=== PATIENT | female | born 2000 | race Caucasian/White ===

== ENCOUNTER 2019-11-01 09:29 | Emergency (ER) | payer BC ==
[2019-11-01 10:11] LABS: Urine Blood 2+ (NEG); Urine Glucose TRACE (NEG); Urine Protein 1+ (NEG); Urine Specific Gravity 1.025 (1.005-1.030)
[2019-11-01 10:28] LABS: Urine Bacteria 20-50 /HPF (<20); Urine Culture Reflex Order REFLEXED; Urine Mucus MOD /HPF (NONE SEEN); Urine RBC 20-50 /HPF (NONE SEEN)
[2019-11-01 10:28] LABS: Absolute Lymphocytes (CBC) 1.5 K/uL (0.7-4.9); Basophils % 0.2 % (0-1.3); Hematocrit 34.1 % (36.0-45.0); MPV 8.6 fL (7.6-11.3); RBC Red Blood Cell Count 4.08 M/uL (3.86-4.86)
[2019-11-01] MEDS ORDERED: KETOROLAC 30 MG/ML INJ ONE (10:58)
--- NOTE | 2019-11-01 11:14 | RAD REPORT ---
EXAM DESCRIPTION: CTAbdomen Pelvis W Contrast - 11/01/2019 11:07 am CLINICAL HISTORY: Abdominal pain. ABD PAIN COMPARISON: No comparisons TECHNIQUE: Biphasic CT imaging of the abdomen and pelvis was performed with 100 ml non-ionic IV cont rast. All CT scans are performed using dose optimization technique as appropriate and may include automated exposure control or mA/KV adjustment according to patient size. FINDINGS: The lung bases are clear. The liver, spleen, pancreas, adrenal glands and right kidney are within normal limits. 3 mm stone (71 5 HU) is present in the proximal left ureter resulting in moderate left hydronephrosis. No bowel obstruction, free air, free fluid or abscess. The appendix is normal. No evidence of signi ficant lymphadenopathy. No suspicious bony findings. 4 cm right ovarian cyst with trace pelvic free. IMPRESSION: 3 mm calculus is present proximal left ureter resulting in moderate left hydronephrosis
[2019-11-01 11:20] LABS: Albumin 3.3 g/dL (3.4-5.0); Bilirubin Direct 0.1 mg/dL (0-0.2); Bilirubin Total 0.5 mg/dL (0.2-1.0); Potassium 3.6 mmol/L (3.5-5.1); Protein, Total 6.4 g/dL (6.4-8.2)
[2019-11-01] MEDS ORDERED: TAMSULOSIN 0.4 MG SR CAP ONE (11:54)
[2019-11-01] MEDS ORDERED: NA CHLORIDE 0.9% 1,000 ML ONE (11:54)
[2019-11-01] MEDS ORDERED: CEFTRIAXONE/SWI 1gm 1 GM/10 ML SYR ONE (11:54)
--- NOTE | 2019-11-01 13:12 | ER ---
Nurse's Notes [facility] Name: Michelle Suarez Age: 19 yrs Sex: Female : 2000 Arrival Date: 11/01/2019 Time: 09:33 Bed 20 Private MD: Aditya Nolasco Diagnosis: Hydronephrosis with renal and ureteral calculous obstruction Presentation: 11/01 09:45 Presenting complaint: Patient states: left flank pain since , radiates to LLQ, iw denies urinary s/s, +nausea, denies v/d. Transition of care: patient was not received from another setting of care. Onset of symptoms was October 26, 2019. Risk Assessment: Do you want to hurt yourself or someone else? Patient reports no desire to harm self or others. Initial Sepsis Screen: Does the patient meet any 2 criteria? No. Patient's initial sepsis screen is negative. Does the patient have a suspected source of infection? No. Patient's initial sepsis screen is negative. Care prior to arrival: None. 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 - Social history:: Smoking status: Patient/guardian denies using tobacco. - Ebola Screening: : Patient negative for fever greater than or equal to 101.5 degrees Fahrenheit, and additional compatible Ebola Virus Disease symptoms Patient denies exposure to infectious person Patient denies travel to an Ebola-affected area in the 21 days before illness onset No symptoms or risks identified at this time. Screenin:05 Abuse screen: Denies threats or abuse. Nutritional screening: No deficits noted. em Tuberculosis screening: No symptoms or risk factors identified. Fall Risk None identified. Assessment: 10:10 General: Appears in no apparent distress. comfortable, Behavior is calm, cooperative, em appropriate for age, Denies fever. Pain: Complains of pain in anterior aspect of left lateral abdomen and posterior aspect of left lateral abdomen Pain currently is 6 out of 10 on a pain scale. Neuro: Level of Consciousness is awake, alert, obeys commands, Oriented to person, place, time, situation, Appropriate for age. Cardiovascular: Capillary refill < 3 seconds Patient's skin is warm and dry. Respiratory: Airway is patent Respiratory effort is even, unlabored, Respiratory pattern is regular, symmetrical. GI: Abdomen is flat, Bowel sounds present X 4 quads. Abd is soft X 4 quads Abdomen is tender to palpation in left lower quadrant. : Denies burning with urination. Derm: Skin is intact, is healthy with good turgor, Skin is pink, warm \T\ dry. Musculoskeletal: Capillary refill < 3 seconds, Range of motion: intact in all extremities. 10:50 Reassessment: reports pain came back, rates pain 7/10. em 11:15 Reassessment: Patient appears in no apparent distress at this time. Patient and/or em family updated on plan of care and expected duration. Pain level reassessed. Patient is alert, oriented x 3, equal unlabored respirations, skin warm/dry/pink. reports pain 4/10 Patient states feeling better. Patient states symptoms have improved. 12:30 Reassessment: Patient appears in no apparent distress at this time. Patient and/or em family updated on plan of care and expected duration. Pain level reassessed. Patient is alert, oriented x 3, equal unlabored respirations, skin warm/dry/pink. Vital Signs: 09:48 BP 121 / 88; Pulse 84; Resp 16 S; Temp 98.2; Pulse Ox 100% on R/A; Weight 49.9 kg; iw Height 5 ft. 3 in. (160.02 cm); Pain 6/10; 10:50 BP 114 / 79; Pulse 66; Resp 18; Pulse Ox 100% on R/A; Pain 7/10; em 11:30 BP 111 / 76; Pulse 65; Resp 18; Pulse Ox 99% on R/A; Pain 4/10; em 12:30 BP 112 / 84; Pulse 64; Resp 18; Pulse Ox 99% on R/A; em 09:48 Body Mass Index 19.49 (49.90 kg, 160.02 cm) iw ED Course: 09:33 Patient arrived in ED. mr 09:33 Aditya Nolasco MD is Private Physician. mr 09:39 Reymundo Nice LVN is Primary Nurse. em 09:42 Chan Burdick FNP-C [facility]. la1 09:42 Sebastian Cline MD is Attending Physician. la1 09:47 Triage completed. iw 09:48 Arm band placed on. iw 09:54 Urine collected: clean catch specimen, erlin colored. dh3 10:05 Patient has correct armband on for positive identification. Placed in gown. Bed in low em position. Call light in reach. Adult w/ patient. Pulse ox on. NIBP on. 10:15 Initial lab(s) drawn, by me, sent to lab. Inserted saline lock: 22 gauge in right em antecubital area, using aseptic technique. Blood collected. 10:43 Lab(s) recollected, by me, sent to lab. dh3 11:08 CT Abd/Pelvis - IV Contrast Only In Process Unspecified. EDMS 13:05 No provider procedures requiring assistance completed. em 13:11 Rigoberto Osullivan MD is Referral Physician. la1 13:31 IV discontinued, intact, bleeding controlled, No redness/swelling at site. Pressure em dressing applied. Administered Medications: 11:00 Drug: TORadol - Ketorolac 15 mg Route: IVP; Site: right antecubital; iw 11:30 Follow up: Response: No adverse reaction; Marked relief of symptoms; Pain is decreased em 12:03 Drug: NS 0.9% 1000 ml Route: IV; Rate: 1000 ml; Site: right antecubital; em 13:32 Follow up: IV Status: Completed infusion; IV Intake: 1000ml em 12:03 Drug: Flomax 0.4 mg Route: PO; em 13:00 Follow up: Response: No adverse reaction em 12:06 Drug: Rocephin 1 grams Route: IV; Rate: calculated rate; Site: right antecubital; iw 13:01 Follow up: IV Status: Completed infusion; IV Intake: 10ml em Intake: 13:01 IV: 10ml; Total: 10ml. em 13:32 IV: 1000ml; Total: 1010ml. em Outcome: 13:11 Discharge ordered by . la1 13:31 Discharged to home ambulatory, with family. em 13:31 Condition: good 13:31 Discharge instructions given to patient, family, Instructed on discharge instructions, follow up and referral plans. medication usage, Demonstrated understanding of instructions, follow-up care, medications, Prescriptions given X 2. 13:34 Patient left the ED. em Signatures: Dispatcher [employer] Maris Cruz, Reymundo, FINANCE INSURANCE MANAGER FINANCE INSURANCE MANAGER Reina Hughes, DUYEN RN Chan Armstrong, CHIEF TALENT OFFICER-C CHIEF TALENT OFFICER-[facility] Tasha Khan 3
--- NOTE | 2019-11-01 13:13 | EDPHYS ---
Physician Documentation [facility] Name: Michelle Suarez Age: 19 yrs Sex: Female : 2000 Arrival Date: 11/01/2019 Time: 09:33 Bed 20 Private MD: Aditya Nolasco ED Physician Sebastian Cline HPI: 11/01 10:24 This 19 yrs old Female presents to ER via Ambulatory with complaints of la1 abdominal pain. 10:24 The patient presents with abdominal pain in the left lower quadrant. Onset: The la1 symptoms/episode began/occurred 6 day(s) ago. The symptoms do not radiate. Associated signs and symptoms: Pertinent positives: nausea, Pertinent negatives: blood in stools, chest pain, constipation, diarrhea, dysuria, fever. The symptoms are described as sharp. Modifying factors: The symptoms are alleviated by nothing, the symptoms are aggravated by nothing. Severity of pain: At its worst the pain was severe in the emergency department the pain has improved. The patient has not experienced similar symptoms in the past. K 12 PRINCIPAL: 09:48 LMP 10/16/2019 iw Historical: - Allergies: 09:48 No Known Allergies; iw - Home Meds: 09:48 None [Active]; iw - PMHx: 09:48 None; iw - PSHx: 09:48 None; iw - Immunization history:: Adult Immunizations up to date. - Social history:: Smoking status: Patient/guardian denies using tobacco. - Ebola Screening: : Patient negative for fever greater than or equal to 101.5 degrees Fahrenheit, and additional compatible Ebola Virus Disease symptoms Patient denies exposure to infectious person Patient denies travel to an Ebola-affected area in the 21 days before illness onset No symptoms or risks identified at this time. ROS: 10:25 Constitutional: Negative for fever, chills, and weight loss, Eyes: Negative for injury, la1 pain, redness, and discharge, ENT: Negative for injury, pain, and discharge, Neck: Negative for injury, pain, and swelling, Cardiovascular: Negative for chest pain, palpitations, and edema, Respiratory: Negative for shortness of breath, cough, wheezing, and pleuritic chest pain. 10:25 Back: Negative for injury and pain, : Negative for injury, bleeding, discharge, and swelling, MS/Extremity: Negative for injury and deformity, Neuro: Negative for headache, weakness, numbness, tingling, and seizure. 10:25 Abdomen/GI: Positive for abdominal pain, nausea, Negative for diarrhea, constipation, abdominal cramps, abdominal distension, anorexia, dysphagia, hematemesis, black/tarry stool, rectal pain, rectal bleeding, bowel incontinence. Exam: 10:26 Constitutional: This is a well developed, well nourished patient who is awake, alert, la1 and in no acute distress. Head/Face: Normocephalic, atraumatic. Eyes: Pupils equal round and reactive to light, extra-ocular motions intact. Periorbital areas with no swelling, redness, or edema. ENT: Mucous membranes moist. Neck: No Meningismus. Chest/axilla: Normal chest wall appearance and motion. Nontender with no deformity. No lesions are appreciated. Cardiovascular: Regular rate and rhythm with a normal S1 and S2. No gallops, murmurs, or rubs. Normal PMI, no JVD. No pulse deficits. Respiratory: Lungs have equal breath sounds bilaterally, clear to auscultation No rales, rhonchi or wheezes noted. No increased work of breathing, no retractions or nasal flaring. 10:26 MS/ Extremity: Pulses equal, no cyanosis. Neurovascular intact. Full, normal range of motion. Neuro: Awake and alert, GCS 15, oriented to person, place, time, and situation. . Normal gait. 10:26 Abdomen/GI: Inspection: abdomen appears normal, Bowel sounds: normal, Palpation: soft, in all quadrants, mild abdominal tenderness, in the posterior aspect of left lateral abdomen, anterior aspect of left lateral abdomen and left lower quadrant, Indicators: McBurney's point is not tender, Camilo's sign is negative, Rovsing's sign is negative, Obturator sign is negative, Psoas sign is negative. 10:26 Back: CVA tenderness, that is mild, is noted on the left. Vital Signs: 09:48 BP 121 / 88; Pulse 84; Resp 16 S; Temp 98.2; Pulse Ox 100% on R/A; Weight 49.9 kg; iw Height 5 ft. 3 in. (160.02 cm); Pain 6/10; 10:50 BP 114 / 79; Pulse 66; Resp 18; Pulse Ox 100% on R/A; Pain 7/10; em 11:30 BP 111 / 76; Pulse 65; Resp 18; Pulse Ox 99% on R/A; Pain 4/10; em 12:30 BP 112 / 84; Pulse 64; Resp 18; Pulse Ox 99% on R/A; em 09:48 Body Mass Index 19.49 (49.90 kg, 160.02 cm) iw MDM: 09:42 Patient medically screened. la1 13:09 Data reviewed: vital signs, nurses notes, lab test result(s), radiologic studies, I la1 have discussed the patient's presentation/case with the attending Emergency Department Physician; and as a result, I will discharge patient. Data interpreted: Pulse oximetry: on room air is 99 %. Interpretation: normal. Counseling: I had a detailed discussion with the patient and/or guardian regarding: the historical points, exam findings, and any diagnostic results supporting the discharge/admit diagnosis, lab results, radiology results, the need for outpatient follow up, a urologist. ED course: PT with 3mm stone, given its size and patients non-toxic appearance, pain under control, afebrile, no elevation in WBC, tolerating PO, will have pt FU outpatient with strict return precautions. 11/01 09:54 Order name: Urine Microscopic Only; Complete Time: 11:20 dh3 11/01 10:04 Order name: Basic Metabolic Panel; Complete Time: 11: hi11/01 10:04 Order name: CBC with Diff; Complete Time: 11: [facility] 11/01 10:04 Order name: Creatinine for Radiology; Complete Time: 11: hi11/01 10:04 Order name: Hepatic Function; Complete Time: 11:25 la1 11/01 10:04 Order name: Lipase; Complete Time: 11:25 hi1 11/01 10:04 Order name: CT Abd/Pelvis - IV Contrast Only; Complete Time: 11:20 hi1 11/01 10:09 Order name: Urine Dipstick--Ancillary (enter results) ms 11/01 10:09 Order name: Urine --Ancillary (enter results) ms 11/01 10:12 Order name: Urine --Ancillary; Complete Time: 11:20 EDMS 11/01 10:12 Order name: Urine Dipstick-Ancillary; Complete Time: 11:20 EDMS 11/01 10:30 Order name: Urine Culture [facility] 11/01 10:04 Order name: IV Saline Lock; Complete Time: 10:17 [facility] 11/01 10:04 Order name: Labs collected and sent; Complete Time: 10:17 [facility] 11/01 10:38 Order name: Labs - recollect needed: chem needs to be recollected; Complete Time: 10:44 ms Administered Medications: 11:00 Drug: TORadol - Ketorolac 15 mg Route: IVP; Site: right antecubital; iw 11:30 Follow up: Response: No adverse reaction; Marked relief of symptoms; Pain is decreased em 12:03 Drug: NS 0.9% 1000 ml Route: IV; Rate: 1000 ml; Site: right antecubital; em 13:32 Follow up: IV Status: Completed infusion; IV Intake: 1000ml em 12:03 Drug: Flomax 0.4 mg Route: PO; em 13:00 Follow up: Response: No adverse reaction em 12:06 Drug: Rocephin 1 grams Route: IV; Rate: calculated rate; Site: right antecubital; iw 13:01 Follow up: IV Status: Completed infusion; IV Intake: 10ml em Disposition: 11/01/19 13:11 Discharged to Home. Impression: Hydronephrosis with renal and ureteral calculous obstruction. - Condition is Stable. - Discharge Instructions: Kidney Stones, Hydronephrosis, Dietary Guidelines to Help Prevent Kidney Stones. - Prescriptions for Cipro 500 mg Oral Tablet - take 1 tablet by ORAL route every 12 hours for 7 days; 14 tablet. Flomax 0.4 mg Oral Capsule, Sust. Release 24 hr - take 1 capsule by ORAL route once daily 1/2 hour following the same meal each day; 14 capsule. - Medication Reconciliation Form, Thank You Letter, Antibiotic Education form. - Follow up: Rigoberto Osullivan MD; When: 2 - 3 days; Reason: Recheck today's complaints, Re-evaluation by your physician. Follow up: Emergency Department; When: As needed; Reason: Worsening of condition. - Problem is new. - Symptoms have improved. Signatures: Dispatcher [employer] EDMS Reymundo Nice, HORSE RACING ANALYST HORSE RACING ANALYST em Reina Matias, DUYEN GELLER Chrissy Davila ms Chan Burdick, IT INTEGRATION ARCHITECT-C IT INTEGRATION ARCHITECT-Cla1 Corrections: (The following items were deleted from the chart) 13:34 13:11 11/01/2019 13:11 Discharged to Home. Impression: Hydronephrosis with renal and em ureteral calculous obstruction. Condition is Stable. Forms are Medication Reconciliation Form, Thank You Letter, Antibiotic Education, Prescription Opioid Use. Follow up: Rigoberto Osullivan; When: 2 - 3 days; Reason: Recheck today's complaints, Re-evaluation by your physician. Follow up: Emergency Department; When: As needed; Reason: Worsening of condition. Problem is new. Symptoms have improved. la1
[2019-11-01 13:50] VITALS: TEMP 98.2
[2019-11-01 13:53] VITALS: O2SAT 99
[2019-11-01 13:54] VITALS: BP 112/84
== END 2019-11-01 13:34 | disposition home or self-care (01) ==
LOC: ER 09:29
DX: N13.2 Hydronephrosis with renal and ureteral calculous obstruction (principal)
CPT/HCPCS: 96365; 96361; 87088; 85025; 80048; 36415; 81025; 80076; 83690; 74177; 96375; 99284; Q9967; J0696; J7030; 81003; 81015; 87086